=== PATIENT | female | born 1990 | race Caucasian/White ===

== ENCOUNTER 2017-07-08 11:48 | Outpatient (CLI) | payer OTHER ==
[~2017-07-08] VITALS: Ht 165.1 cm; Wt 108.0 kg
[2017-07-08 12:15] VITALS: BP 129/94
[2017-07-08 13:01] LABS: HEMATOCRIT 35.5 % (34.6-47.8); HEMOGLOBIN 11.9 g/dL (11.7-16.4); WHITE BLOOD COUNT 9.6 x10^3/uL (3.4-10)
[2017-07-08 13:11] LABS: ASPARTATE AMINO TRANSFERASE 8 U/L (15-37); BLOOD UREA NITROGEN 5 mg/dL (7-18)
[2017-07-08] MEDS ORDERED: PREN1TAB60 PO (14:43)
== END 2017-07-08 14:55 | disposition home or self-care (01) ==
LOC: LDOP 11:48
PROVIDERS: ATTEND Obstetrics & Gynecology
DX: O36.8130 Decreased fetal movements, third trimester, not applicable or unspecified (principal); Z3A.31 31 weeks gestation of pregnancy
CPT/HCPCS: 36415; 59025; 76815; 80053; 81001; 82248; 82570; 84156; 84550; 85025; 99201; G0463

== ENCOUNTER 2017-07-13 16:23 | Outpatient (CLI) | payer OTHER ==
[~2017-07-13] VITALS: Ht 165.1 cm; Wt 108.2 kg
[~2017-07-13 16:23] MED LIST: PREN1TAB60 PO
[2017-07-13 16:40] VITALS: BP 135/80
[2017-07-13 18:00] LABS: ASPARTATE AMINO TRANSFERASE 12 U/L (15-37); BLOOD UREA NITROGEN 5 mg/dL (7-18)
[2017-07-13 18:03] LABS: LACTATE DEHYDROGENASE 160 U/L (84-246)
[2017-07-13 18:34] LABS: HEMATOCRIT 36.2 % (34.6-47.8); HEMOGLOBIN 12.4 g/dL (11.7-16.4); WHITE BLOOD COUNT 12.8 x10^3/uL (3.4-10)
== END 2017-07-13 19:30 | disposition home or self-care (01) ==
LOC: LDOP 16:23
PROVIDERS: ATTEND Obstetrics & Gynecology
DX: O13.3 Gestational [pregnancy-induced] hypertension without significant proteinuria, third trimester (principal); O26.893 Other specified pregnancy related conditions, third trimester; O36.8130 Decreased fetal movements, third trimester, not applicable or unspecified; O99.513 Diseases of the respiratory system complicating pregnancy, third trimester; J45.909 Unspecified asthma, uncomplicated; Z3A.31 31 weeks gestation of pregnancy
CPT/HCPCS: 36415; 59025; 80053; 81001; 81050; 82570; 83615; 84156; 84550; 85025; 99211; G0463

== ENCOUNTER 2017-07-28 10:38 | Outpatient (CLI) | payer OTHER ==
[~2017-07-28] VITALS: Ht 165.1 cm; Wt 110.0 kg
[2017-07-28 10:49] VITALS: BP 131/95
[2017-07-28] MEDS ORDERED: OXYcodone/APAP 5/325MG TABLET PO ONE (11:30)
[2017-07-28] MEDS ORDERED: OXYcodone/APAP 5/325MG TABLET ONE (11:49)
[2017-07-28 11:55] LABS: ASPARTATE AMINO TRANSFERASE 21 U/L (15-37); BLOOD UREA NITROGEN 5 mg/dL (7-18); HEMATOCRIT 36.4 % (34.6-47.8); HEMOGLOBIN 12.2 g/dL (11.7-16.4); WHITE BLOOD COUNT 10.1 x10^3/uL (3.4-10)
== END 2017-07-28 12:42 | disposition home or self-care (01) ==
LOC: LDOP 10:38
PROVIDERS: ATTEND Obstetrics & Gynecology
DX: O26.893 Other specified pregnancy related conditions, third trimester (principal); O10.913 Unspecified pre-existing hypertension complicating pregnancy, third trimester; O99.513 Diseases of the respiratory system complicating pregnancy, third trimester; J45.909 Unspecified asthma, uncomplicated; R51 Headache; Z3A.33 33 weeks gestation of pregnancy
CPT/HCPCS: 36415; 59025; 80053; 81001; 82248; 82570; 84156; 84550; 85025; 99211; G0463

== ENCOUNTER 2017-08-09 12:07 | Outpatient (CLI) | payer OTHER ==
[~2017-08-09] VITALS: Ht 165.1 cm; Wt 115.5 kg
[2017-08-09 13:15] LABS: HEMATOCRIT 36.4 % (34.6-47.8); HEMOGLOBIN 12.3 g/dL (11.7-16.4); WHITE BLOOD COUNT 10.4 x10^3/uL (3.4-10)
[2017-08-09 13:22] LABS: ASPARTATE AMINO TRANSFERASE 28 U/L (15-37); BLOOD UREA NITROGEN 4 mg/dL (7-18)
[2017-08-09 13:25] LABS: LACTATE DEHYDROGENASE 172 U/L (84-246)
== END 2017-08-09 14:30 | disposition home or self-care (01) ==
LOC: LDOP 12:07
PROVIDERS: ATTEND Obstetrics & Gynecology
DX: O10.913 Unspecified pre-existing hypertension complicating pregnancy, third trimester (principal); O99.513 Diseases of the respiratory system complicating pregnancy, third trimester; J45.909 Unspecified asthma, uncomplicated; Z3A.34 34 weeks gestation of pregnancy
CPT/HCPCS: 36415; 59025; 80053; 81001; 82248; 82570; 83615; 84156; 84550; 85025; 99211; G0463

== ENCOUNTER 2017-08-18 12:41 | Outpatient (CLI) | payer OTHER ==
[2017-08-18 13:17] LABS: BASOPHILS # (AUTO) 0.05 x10^3/uL (0-0.1); BASOPHILS % (AUTO) 0 % (0-1); EOSINOPHILS # (AUTO) 0.06 x10^3/uL (0-0.4); EOSINOPHILS % (AUTO) 1 % (1-7); LYMPHOCYTES # (AUTO) 1.61 x10^3/uL (1-3.4); LYMPHOCYTES % (AUTO) 15 % (22-44); MD NO; MEAN CORPUSCULAR HEMOGLOBIN 28.6 pg (27.0-34.8); MEAN CORPUSCULAR HGB CONC 33.7 g/dL (32.4-35.8); MEAN CORPUSCULAR VOLUME 85.1 fL (80-100); MEAN PLATELET VOLUME 10.4 fL (7.4-10.4); MONOCYTES # (AUTO) 0.43 x10^3/uL (0.2-0.8); MONOCYTES % (AUTO) 4 % (2-9); NEUTROPHILS # (AUTO) 8.77 x10^3/uL (1.8-6.8); NEUTROPHILS % (AUTO) 80 % (42-75); PLATELET COUNT 220 x10^3/uL (130-400); RED BLOOD COUNT 4.34 x10^6/uL (3.82-5.3)
[2017-08-18 13:25] LABS: MICROSCOPIC INDICATED
[2017-08-18 13:26] LABS: ALANINE AMINOTRANSFERASE 40 U/L (12-78); ALBUMIN 2.7 g/dL (3.4-5.0); ANION GAP 8 mmol/L (5-15); BILIRUBIN, DIRECT < 0.1 mg/dL (0.1-0.2); CHLORIDE 108 mmol/L (98-107); CREATININE 0.65 mg/dL (0.55-1.02)
[2017-08-18 13:35] LABS: ALKALINE PHOSPHATASE 107 U/L (45-117); BILIRUBIN,TOTAL 0.2 mg/dL (0.2-1.0); TOTAL PROTEIN 6.5 g/dL (6.4-8.2)
[2017-08-18 13:44] LABS: AMNISURE NEGATIVE (NEGATIVE)
[2017-08-18 13:54] LABS: CREATININE,URINE RANDOM 76.4 mg/dL
[2017-08-18] MEDS ORDERED: LABE50SY PO (14:05)
== END 2017-08-18 14:20 | disposition home or self-care (01) ==
LOC: LDOP 12:41
PROVIDERS: ATTEND Obstetrics & Gynecology
DX: O26.893 Other specified pregnancy related conditions, third trimester (principal); R10.9 Unspecified abdominal pain; Z3A.36 36 weeks gestation of pregnancy
CPT/HCPCS: 36415; 59025; 80053; 81001; 82248; 82570; 83615; 84112; 84156; 84550; 85025; 99211; G0463

== ENCOUNTER 2017-08-23 11:50 | Outpatient (CLI) | payer OTHER ==
[~2017-08-23 11:50] MED LIST changes: +LABE50SY PO
[2017-08-23 12:44] LABS: CREATININE,URINE RANDOM 36.4 mg/dL
[2017-08-23 12:53] LABS: BASOPHILS # (AUTO) 0.08 x10^3/uL (0-0.1); BASOPHILS % (AUTO) 1 % (0-1); EOSINOPHILS # (AUTO) 0.07 x10^3/uL (0-0.4); EOSINOPHILS % (AUTO) 1 % (1-7); LYMPHOCYTES % (AUTO) 14 % (22-44); MD NO; MEAN CORPUSCULAR HEMOGLOBIN 28.7 pg (27.0-34.8); MEAN CORPUSCULAR HGB CONC 33.8 g/dL (32.4-35.8); MEAN CORPUSCULAR VOLUME 85.1 fL (80-100); MEAN PLATELET VOLUME 10.6 fL (7.4-10.4); MONOCYTES # (AUTO) 0.38 x10^3/uL (0.2-0.8); MONOCYTES % (AUTO) 4 % (2-9); NEUTROPHILS # (AUTO) 7.84 x10^3/uL (1.8-6.8); NEUTROPHILS % (AUTO) 80 % (42-75); PLATELET COUNT 204 x10^3/uL (130-400); RED BLOOD COUNT 4.19 x10^6/uL (3.82-5.3); RED CELL DISTRIBUTION WIDTH 15.3 % (9.6-15.2)
[2017-08-23 12:56] LABS: ALANINE AMINOTRANSFERASE 33 U/L (12-78); ALBUMIN 2.6 g/dL (3.4-5.0); ANION GAP 10 mmol/L (5-15); CALCIUM 8.9 mg/dL (8.5-10.1); CHLORIDE 106 mmol/L (98-107); CREATININE 0.62 mg/dL (0.55-1.02)
[2017-08-23 12:58] LABS: BILIRUBIN, DIRECT < 0.1 mg/dL (0.1-0.2)
[2017-08-23 12:58] LABS: MICROSCOPIC INDICATED
[2017-08-23 13:00] LABS: ALKALINE PHOSPHATASE 99 U/L (45-117); BILIRUBIN,TOTAL 0.2 mg/dL (0.2-1.0); TOTAL PROTEIN 6.3 g/dL (6.4-8.2)
== END 2017-08-23 14:39 ==
LOC: LDOP 11:50
PROVIDERS: ATTEND Obstetrics & Gynecology
DX: O10.913 Unspecified pre-existing hypertension complicating pregnancy, third trimester (principal); Z3A.37 37 weeks gestation of pregnancy
CPT/HCPCS: 36415; 59025; 80053; 81001; 82248; 82570; 84156; 84550; 85025; 99211; G0463

== ENCOUNTER 2017-08-25 08:11 | Inpatient (IN) | payer OTHER ==
[~2017-08-25] VITALS: Ht 162.6 cm; Wt 116.4 kg
[2017-08-25 23:15] VITALS: BP 142/91
[2017-08-25] MEDS ORDERED: OXYTOCIN 30U/ 0.9% NaCL 500ML 500 ML IV ONE (23:38)
[2017-08-25] MEDS ORDERED: MISOPROSTOL 25 MCG TABLET ONE ×2 (23:44→23:56)
[2017-08-26] MEDS ORDERED: METOCLOPRAMIDE 5 MG/ML, 2ML IVPush PRN
[2017-08-26] MEDS ORDERED: CALCIUM CARBONATE 500 MG TAB.CHEW PO PRN
[2017-08-26] MEDS ORDERED: FENTANYL PF 100 MCG/2ML IV PRN
[2017-08-26] MEDS ORDERED: SODIUM CITRATE/CITRIC ACID 30 ML UDC PO PRN
[2017-08-26] MEDS ORDERED: MISOPROSTOL 25 MCG TABLET VG PRN
[2017-08-26] MEDS ORDERED: TERBUTALINE 1 MG/ML, 1ML IVPush PRN
[2017-08-26] MEDS ORDERED: ONDANSETRON 2MG/ML, 2ML IVPush PRN
[2017-08-26 00:25] LABS: BASOPHILS # (AUTO) 0.02 x10^3/uL (0-0.1); BASOPHILS % (AUTO) 0 % (0-1); EOSINOPHILS # (AUTO) 0.07 x10^3/uL (0-0.4); EOSINOPHILS % (AUTO) 1 % (1-7); LYMPHOCYTES # (AUTO) 2.39 x10^3/uL (1-3.4); LYMPHOCYTES % (AUTO) 21 % (22-44); MD NO; MEAN CORPUSCULAR HEMOGLOBIN 28.8 pg (27.0-34.8); MEAN CORPUSCULAR VOLUME 84.6 fL (80-100); MEAN PLATELET VOLUME 10.5 fL (7.4-10.4); MONOCYTES # (AUTO) 0.48 x10^3/uL (0.2-0.8); MONOCYTES % (AUTO) 4 % (2-9); NEUTROPHILS # (AUTO) 8.58 x10^3/uL (1.8-6.8); NEUTROPHILS % (AUTO) 74 % (42-75); PLATELET COUNT 215 x10^3/uL (130-400); RED BLOOD COUNT 4.49 x10^6/uL (3.82-5.3); RED CELL DISTRIBUTION WIDTH 15.6 % (9.6-15.2)
[2017-08-26 00:31] LABS: ALANINE AMINOTRANSFERASE 45 U/L (12-78); ALBUMIN 2.8 g/dL (3.4-5.0); ANION GAP 11 mmol/L (5-15); CALCIUM 10.1 mg/dL (8.5-10.1); CHLORIDE 105 mmol/L (98-107)
[2017-08-26 00:32] LABS: BILIRUBIN, DIRECT < 0.1 mg/dL (0.1-0.2)
[2017-08-26 00:34] LABS: ALKALINE PHOSPHATASE 115 U/L (45-117); BILIRUBIN,TOTAL 0.2 mg/dL (0.2-1.0); CREATININE 0.67 mg/dL (0.55-1.02); TOTAL PROTEIN 6.8 g/dL (6.4-8.2)
[2017-08-26 00:42] LABS: MICROSCOPIC INDICATED
[2017-08-26 00:50] LABS: CREATININE,URINE RANDOM 90.7 mg/dL
[2017-08-26] MEDS ORDERED: SIMETHICONE 80 MG CHEW TAB ONE (01:48)
[2017-08-26] MEDS ORDERED: SIMETHICONE 80 MG CHEW TAB PO SCH (02:00)
[2017-08-26] MEDS ORDERED: NEWBORN KIT ONE (02:32)
[2017-08-26] MEDS ORDERED: LABETALOL 5MG/ML, 20ML ONE (04:50)
[2017-08-26] MEDS ORDERED: LABETALOL 5MG/ML, 20ML IVPush PRN (05:00)
[2017-08-26] MEDS ORDERED: OXYTOCIN 30U/ 0.9% NaCL 500ML 500 ML IV PRN (06:47)
[2017-08-26] MEDS: D5%-LACTATED RINGERS 1,000 ML IV SCH ×4 (07:38→23:38)
[2017-08-26] MEDS ORDERED: OXYTOCIN 30U/ 0.9% NaCL 500ML 500 ML ONE (07:50)
[2017-08-26] MEDS: LABETALOL 200 MG TABLET PO SCH ×2 (08:00→19:25)
[2017-08-26] MEDS ORDERED: FENTANYL PF 100 MCG/2ML ONE ×3 (14:00→16:38)
[2017-08-26] MEDS: FENTANYL PF 100 MCG/2ML IVPush PRN ×2 (14:03→15:58)
[2017-08-26] MEDS: LACTATED RINGERS 1,000 ML IV SCH ×4 (14:12→23:38)
[2017-08-26] MEDS ORDERED: BUPIVACAINE 0.25% ONE (16:38)
[2017-08-26] MEDS ORDERED: FENTANYL/BUPIV./NS/PF 250 ML EPIDCONT ONE ×2 (16:38→16:56)
[2017-08-26] MEDS ORDERED: LIDOCAINE/PF 1.5%-EPI 1:200K, 30ML ONE (16:56)
[2017-08-26] MEDS ORDERED: LIDOCAINE 1%, 10ML ONE (17:55)
[2017-08-26] MEDS ORDERED: MISOPROSTOL 200 MCG TABLET ONE (17:55)
[2017-08-26] MEDS ORDERED: LABETALOL 5MG/ML, 20ML IVPush ONE (19:00)
[2017-08-26 19:11] LABS: ALANINE AMINOTRANSFERASE 39 U/L (12-78); ALBUMIN 2.6 g/dL (3.4-5.0); ANION GAP 10 mmol/L (5-15); CALCIUM 8.3 mg/dL (8.5-10.1); CHLORIDE 106 mmol/L (98-107); CREATININE 0.61 mg/dL (0.55-1.02)
[2017-08-26 19:12] LABS: BASOPHILS % (AUTO) 0 % (0-1); EOSINOPHILS # (AUTO) 0.05 x10^3/uL (0-0.4); EOSINOPHILS % (AUTO) 0 % (1-7); LYMPHOCYTES # (AUTO) 1.18 x10^3/uL (1-3.4); LYMPHOCYTES % (AUTO) 8 % (22-44); MD NO; MEAN CORPUSCULAR HEMOGLOBIN 29.1 pg (27.0-34.8); MEAN CORPUSCULAR VOLUME 85.6 fL (80-100); MEAN PLATELET VOLUME 10.3 fL (7.4-10.4); MONOCYTES # (AUTO) 0.61 x10^3/uL (0.2-0.8); MONOCYTES % (AUTO) 4 % (2-9); NEUTROPHILS # (AUTO) 12.99 x10^3/uL (1.8-6.8); NEUTROPHILS % (AUTO) 88 % (42-75); PLATELET COUNT 195 x10^3/uL (130-400); RED BLOOD COUNT 4.38 x10^6/uL (3.82-5.3); RED CELL DISTRIBUTION WIDTH 15.4 % (9.6-15.2)
[2017-08-26 19:14] LABS: ALKALINE PHOSPHATASE 111 U/L (45-117); BILIRUBIN,TOTAL 0.4 mg/dL (0.2-1.0); TOTAL PROTEIN 6.4 g/dL (6.4-8.2)
[2017-08-26] MEDS ORDERED: ONDANSETRON 2MG/ML, 2ML ONE (19:23)
[2017-08-26] MEDS ORDERED: LACTATED RINGERS 1,000 ML INTUTE SCH (22:00)
[2017-08-26] MEDS ORDERED: LACTATED RINGERS 1,000 ML INTUTE PRN (22:00)
[2017-08-27] MEDS ORDERED: ACETAMINOPHEN 325 MG TABLET ONE (00:45)
[2017-08-27] MEDS ORDERED: LABETALOL 5MG/ML, 20ML IVPush ONE (01:00)
[2017-08-27] MEDS ORDERED: ACETAMINOPHEN 325 MG TABLET PO PRN ×3 (01:00→03:00)
[2017-08-27] MEDS ORDERED: OXYTOCIN 30U/ 0.9% NaCL 500ML 500 ML ONE ×2 (02:55→03:23)
[2017-08-27] MEDS: OXYTOCIN 30U/ 0.9% NaCL 500ML 500 ML IV SCH ×3 (02:59→22:38)
[2017-08-27] MEDS ORDERED: METHYLERGONOVINE 0.2 MG/ML IM PRN (03:00)
[2017-08-27] MEDS ORDERED: OXYcodone/APAP 5/325MG TABLET PO PRN ×2 (03:00)
[2017-08-27] MEDS ORDERED: ONDANSETRON 2MG/ML, 2ML IV PRN (03:00)
[2017-08-27 05:00] VITALS: BP 140/89
[2017-08-27] MEDS: LABETALOL 200 MG TABLET PO SCH ×2 (08:00→19:40)
[2017-08-27 09:00] VITALS: BP 127/86
[2017-08-27] MEDS: PRENATAL VIT/IRON/FA 1 EACH TABLET PO SCH (09:00)
[2017-08-27] MEDS: DOCUSATE 100 MG CAPSULE PO PRN (09:29)
[2017-08-27] MEDS: IBUPROFEN 600 MG TABLET PO PRN ×2 (09:29→16:23)
[2017-08-27 10:29] LABS: MEAN CORPUSCULAR HEMOGLOBIN 28.9 pg (27.0-34.8); MEAN CORPUSCULAR VOLUME 85.1 fL (80-100); MEAN PLATELET VOLUME 9.9 fL (7.4-10.4); PLATELET COUNT 165 x10^3/uL (130-400); RED CELL DISTRIBUTION WIDTH 15.7 % (9.6-15.2)
[2017-08-27 10:43] LABS: MD YES
[2017-08-27 10:45] LABS: BAND#(MANUAL) 1.07 x10^3/uL; BANDS%(MANUAL) 6 % (0-7); LYMPH#(MANUAL) 1.25 x10^3/uL (1-3.4); LYMPHS% (MANUAL) 7 % (22-44); MONOS#(MANUAL) 0.89 x10^3/uL (0.3-2.7); MONOS% (MANUAL) 5 % (2-9); SEGS% (MANUAL) 82 % (42-75)
[2017-08-27 10:46] LABS: <PLATELET ESTIMATE> ADEQUATE; POLYCHROMASIA 1+
[2017-08-27 10:47] LABS: LARGE PLATELETS 1+
[2017-08-27 12:27] VITALS: BP 127/84
[2017-08-27 16:25] VITALS: BP 121/80
[2017-08-27 19:35] VITALS: BP 133/89
[2017-08-27] MEDS ORDERED: DIPH,PERTUSS(ACELL),TET VAC/PF NC IM-VACC ONE (20:45)
[2017-08-28 00:15] VITALS: BP 130/83
[2017-08-28 08:30] VITALS: BP 130/88
[2017-08-28] MEDS: DOCUSATE 100 MG CAPSULE PO PRN (08:35)
[2017-08-28] MEDS: LABETALOL 200 MG TABLET PO SCH ×2 (08:35→19:05)
[2017-08-28] MEDS: IBUPROFEN 600 MG TABLET PO PRN ×2 (08:35→16:37)
[2017-08-28] MEDS: OXYTOCIN 30U/ 0.9% NaCL 500ML 500 ML IV SCH ×2 (08:38→18:38)
[2017-08-28] MEDS: PRENATAL VIT/IRON/FA 1 EACH TABLET PO SCH (09:00)
[2017-08-28 12:30] VITALS: BP 132/95
[2017-08-28 16:00] VITALS: BP 140/94
[2017-08-28 20:20] VITALS: BP 155/102
[2017-08-28 23:35] VITALS: BP 140/94
[2017-08-29 03:55] VITALS: BP 139/95
[2017-08-29] MEDS: OXYTOCIN 30U/ 0.9% NaCL 500ML 500 ML IV SCH (04:38)
[2017-08-29] MEDS: IBUPROFEN 600 MG TABLET PO PRN (06:19)
[2017-08-29 07:31] VITALS: BP 132/80
[2017-08-29] MEDS: LABETALOL 200 MG TABLET PO SCH (08:41)
[2017-08-29] MEDS: PRENATAL VIT/IRON/FA 1 EACH TABLET PO SCH (08:41)
[2017-08-29] MEDS: DOCUSATE 100 MG CAPSULE PO PRN (08:41)
[2017-08-29] MEDS ORDERED: IBUP-1222 PO (12:27)
== END 2017-08-29 15:08 | disposition home or self-care (01) | DRG 775 ==
LOC: LDIP 22:47 → 2NW 08-27 05:37
PROVIDERS: ADMIT Obstetrics & Gynecology; ATTEND Obstetrics & Gynecology
PROC: 10E0XZZ Delivery of Products of Conception, External Approach (ICD-10-PCS; principal; 2017-08-27)
PROC: 0KQM0ZZ Repair Perineum Muscle, Open Approach (ICD-10-PCS; 2017-08-27)
PROC: 10907ZC Drainage of Amniotic Fluid, Therapeutic from Products of Conception, Via Natural or Artificial Opening (ICD-10-PCS; 2017-08-27)
DX: O69.1XX0 Labor and delivery complicated by cord around neck, with compression, not applicable or unspecified (principal); J45.909 Unspecified asthma, uncomplicated; O14.04 Mild to moderate pre-eclampsia, complicating childbirth; O70.1 Second degree perineal laceration during delivery; O99.52 Diseases of the respiratory system complicating childbirth; Z3A.37 37 weeks gestation of pregnancy; Z37.0 Single live birth
CPT/HCPCS: 36415; 80053; 81001; 82248; 82570; 82803; 84156; 84550; 85025; 86850; 86900; 90715; J2405; J3010; J3490; J2590; J7120; J7121

== ENCOUNTER 2019-03-15 23:07 | Emergency (ER) | payer OTHER ==
[~2019-03-15] VITALS: Ht 167.6 cm; Wt 107.1 kg
[2019-03-16 01:04] VITALS: BP 117/75
== END 2019-03-16 01:38 | disposition home or self-care (01) ==
LOC: ED 23:32
DX: N83.292 Other ovarian cyst, left side (principal); R10.32 Left lower quadrant pain
CPT/HCPCS: 36415; 76830; 80048; 81003; 82040; 84703; 85025; 99284